=== PATIENT | male | born 1950 | race Caucasian/White ===

== ENCOUNTER → 2017-09-01 11:36 | Outpatient (CLI) | payer BC, MEDICARE, SELFPAY ==
[2017-09-01 13:58] LABS: Absolute Lymphocyte Count 1.59 X10^3/ul (0.83-4.51); Absolute Neutrophil Count 4.6 X10^3/uL (2.0-7.7); Basophil# 0.03 X10^3/uL; Basophil% 0.4 % (0-1); Eosinophil# 0.19 X10^3/uL; Eosinophils% 2.8 % (0-5); Hematocrit 50.3 % (40-54); Hemoglobin 16.5 g/dl (13.0-16.5); Lymphocyte # 1.59 X10^3/ul (4.0); Lymphocyte % 23.2 % (19-41); Mean Corp Hgb Conc 32.8 g/gl (32-36); Mean Corpuscular Hgb 32.2 pg (27.0-32.0); Mean Corpuscular Volume 98.2 fL (80-94); Mean Platelet Vol. 10.8 fl (6.2-12.0); Monocyte# 0.44 X10^3/uL; Monocyte% 6.4 % (0-10); Neutrophil # 4.58 X10^3/uL (2.7-7.7); Neutrophil % 66.9 % (47-70); Platelet Count 179 K/mm3 (150-450); RBC Distribution Width CV 14.1 % (11.6-14.6); RBC Distribution Width SD 50.6 fl (35.1-43.9); Red Blood Count 5.12 M/mm3 (4.6-6.2); White Blood Count 6.9 K/mm3 (4.4-11.0)
[2017-09-01 14:03] LABS: POSITIVE COUNT NO; POSITIVE DIFFERENTIAL NO; POSITIVE MORPHOLOGY NO
[2017-09-01 14:18] LABS: Anion Gap 10 (5-15); BUN 18 mg/dL (7-18); BUN/Creat Ratio 12.2 RATIO (10-20); Calcium,Total 8.7 mg/dL (8.5-10.1); Chloride 105 mmol/L (98-107); Creatinine, Serum 1.47 mg/dL (0.70-1.30); EST Glomerular Filtration Rate 51 mL/min (>60); Est Glom Filt Rate - Afr Amer 61 mL/min (>60); Glucose 155 mg/dL (74-106); Potassium 4.6 mmol/L (3.5-5.1); Sodium Level 139 mmol/L (136-145); Thyroid Stim Hormone (TSH) 1.53 uIU/mL (0.358-3.74)
== END ==
PROVIDERS: Family Provider Family Medicine; PCP Family Medicine; Visit Provider Family Medicine
DX: R53.83 Other fatigue (principal)
CPT/HCPCS: 36415; 80048; 83880; 84443; 85025

== ENCOUNTER → 2017-10-16 09:01 | Outpatient (CLI) | payer BC, MEDICARE, SELFPAY ==
[2017-10-16 10:19] LABS: Microalbumin,Random Urine 11.4 mg/L (NO RANGE EST.); Microalbumin:Creatinine Ratio 10.8 mg/g CRE (<30 mg/g CRE)
[2017-10-16 10:20] LABS: AST(SGOT) 17 U/L (15-37); Alanine Aminotransfer ALT/SGPT 31 U/L (16-61); Albumin, Serum 3.7 g/dL (3.2-5.0); Alkaline Phosphatase 69 U/L (45-117); Anion Gap 7 (5-15); BUN 25 mg/dL (7-18); BUN/Creat Ratio 18.4 RATIO (10-20); Bilirubin, Direct 0.11 mg/dL (0.00-0.30); Calcium,Total 9.2 mg/dL (8.5-10.1); Chloride 107 mmol/L (98-107); Cholesterol 146 mg/dL (200); Creatinine, Serum 1.36 mg/dL (0.70-1.30); EST Glomerular Filtration Rate 56 mL/min (>60); Est Glom Filt Rate - Afr Amer 67 mL/min (>60); Globulin 3.7 g/dL (2.2-4.2); Glucose 164 mg/dL (74-106); High Density Lipoprotein 30 mg/dL; Potassium 4.9 mmol/L (3.5-5.1); Protein, Total 7.4 g/dL (6.4-8.2); Sodium Level 137 mmol/L (136-145); Triglycerides 106 mg/dL; Very Low Density Lipoprotein 21 mg/dL (5-40)
== END ==
PROVIDERS: Family Provider Family Medicine; PCP Family Medicine; Visit Provider Family Medicine
DX: E11.9 Type 2 diabetes mellitus without complications (principal)
CPT/HCPCS: 36415; 80048; 80061; 80076; 82043; 82570

== ENCOUNTER → 2017-10-22 12:40 | Outpatient (CLI) | payer BC, MEDICARE, SELFPAY ==
--- NOTE | 2017-11-01 15:09 | LEAS ---
Arterial Study - Arterial Study Arterial Study: This is a 67-year-old male with a history of hypertension, cerebrovascular accident, and coronary artery disease. Suspecting the presence of atherosclerotic peripheral arterial occlusive disease, the patient was brought to the noninvasive vascular laboratory at this time for the purpose of bilateral noninvasive lower extremity arterial assessment. Doppler signal assessment was used to evaluate the pulses at ankle level bilaterally. The right posterior tibial pulse was triphasic. The right dorsalis pedis pulse was biphasic. The left posterior tibial and dorsalis pedis pulses were biphasic. Segmental limb pressures were obtained at ankle level bilaterally. The right ankle pressure, as determined by posterior tibial pulse, was measured at 154 mmHg. The right ankle pressure, as determined by dorsalis pedis pulse, was measured at 140 mmHg. The left ankle pressure, as determined by posterior tibial pulse, was measured at 142 mmHg. The left ankle pressure, as determined by dorsalis pedis pulse, was measured at 133 mmHg. Resting ankle-brachial indices were calculated bilaterally. The resting right ankle-brachial index was calculated to be 1.21. The resting left ankle-brachial index was calculated to be 1.12. Impression: Based upon the findings of this resting noninvasive lower extremity arterial study, there is no evidence of significant atherosclerotic peripheral arterial occlusive disease in the lower extremities bilaterally. Triphasic and biphasic waveforms were noted at ankle level bilaterally. Resting ankle-brachial indices were bilaterally normal. In summary, this represents a normal resting noninvasive lower extremity arterial study bilaterally.
--- NOTE | 2017-11-01 15:13 | LEAS_ITS ---
Arterial Study - Arterial Study Arterial Study: This is a 67-year-old male with a history of hypertension, cerebrovascular accident, and coronary artery disease. Suspecting the presence of atherosclerotic peripheral arterial occlusive disease, the patient was brought to the noninvasive vascular laboratory at this time for the purpose of bilateral noninvasive lower extremity arterial assessment. Doppler signal assessment was used to evaluate the pulses at ankle level bilaterally. The right posterior tibial pulse was triphasic. The right dorsalis pedis pulse was biphasic. The left posterior tibial and dorsalis pedis pulses were biphasic. Segmental limb pressures were obtained at ankle level bilaterally. The right ankle pressure, as determined by posterior tibial pulse, was measured at 154 mmHg. The right ankle pressure, as determined by dorsalis pedis pulse, was measured at 140 mmHg. The left ankle pressure, as determined by posterior tibial pulse, was measured at 142 mmHg. The left ankle pressure, as determined by dorsalis pedis pulse, was measured at 133 mmHg. Resting ankle-brachial indices were calculated bilaterally. The resting right ankle-brachial index was calculated to be 1.21. The resting left ankle- brachial index was calculated to be 1.12. Impression: Based upon the findings of this resting noninvasive lower extremity arterial study, there is no evidence of significant atherosclerotic peripheral arterial occlusive disease in the lower extremities bilaterally. Triphasic and biphasic waveforms were noted at ankle level bilaterally. Resting ankle- brachial indices were bilaterally normal. In summary, this represents a normal resting noninvasive lower extremity arterial study bilaterally.
== END ==
PROVIDERS: Family Provider Family Medicine; PCP Family Medicine; Visit Provider Family Medicine
DX: M79.671 Pain in right foot (principal)
CPT/HCPCS: 93922

== ENCOUNTER → 2017-11-19 12:07 | Outpatient (CLI) | payer MEDICARE, BC, SELFPAY ==
--- NOTE | 2017-11-19 12:14 | RAD_ITS ---
STUDY: X-RAY - THORACIC SPINE REASON FOR EXAM: Male, 67 years old. Mid to lower back pain. No injury. TECHNIQUE: 3 view(s) of the thoracic spine were obtained. COMPARISON: None. FINDINGS: AICD device. Borderline cardiomegaly. Normal vertebral body height and alignment. Minimal spondylosis. No significant disc narrowing. Small anterior osteophytes. Normal alignment across the cervicothoracic junction. Normal thoracic kyphosis without significant scoliosis. Limited view of the cervical spine reveals evidence of multilevel cervical disc degenerative disease between C5 and T1. Limited evaluation. RAD/Thoracic Spine 2 Views IMPRESSION: Minimal thoracic spondylosis. Multilevel mid to low cervical spondylosis incompletely characterized. Electronically Signed: Mir Olivera, at 18:00 EDT Tel , Service support ,
== END ==
PROVIDERS: Family Provider Family Medicine; PCP Family Medicine; Visit Provider Family Medicine
DX: M54.6 Pain in thoracic spine (principal)
CPT/HCPCS: 72070

== ENCOUNTER → 2017-11-21 09:06 | Outpatient (CLI) | payer MEDICARE, BC, SELFPAY ==
[2017-11-21 10:08] LABS: Hematocrit 49.1 % (40-54); Hemoglobin 16.3 g/dl (13.0-16.5); Mean Corp Hgb Conc 33.2 g/gl (32-36); Mean Corpuscular Hgb 32.7 pg (27.0-32.0); Mean Corpuscular Volume 98.6 fL (80-94); Mean Platelet Vol. 10.3 fl (6.2-12.0); Platelet Count 186 K/mm3 (150-450); RBC Distribution Width CV 14.3 % (11.6-14.6); RBC Distribution Width SD 51.5 fl (35.1-43.9); Red Blood Count 4.98 M/mm3 (4.6-6.2); White Blood Count 9.7 K/mm3 (4.4-11.0)
[2017-11-21 10:10] LABS: Scan Indicated on CBC? Y/N NO
== END ==
PROVIDERS: Family Provider Family Medicine; PCP Family Medicine; Visit Provider Family Medicine
DX: M54.6 Pain in thoracic spine (principal)
CPT/HCPCS: 36415; 85027

== ENCOUNTER → 2017-12-24 11:01 | Outpatient (CLI) | payer BC, MEDICARE, SELFPAY ==
--- NOTE | 2017-12-24 11:05 | CDU_ITS ---
Reason For Study: SYNCOPE Rt. Velocities/BP Lt. Velocities/BP Prox CCA 98.5/19.3 cm/sec. Prox CCA 85.0/23.5 cm/sec. Mid CCA 100.0/22.9 cm/sec. Mid CCA 108.0/28.1 cm/sec. Dist CCA 86.2/21.1 cm/sec. Dist CCA 79.7/17.6 cm/sec. Prox ICA 72.7/24.0 cm/sec. Prox ICA 90.3/26.4 cm/sec. Mid ICA 70.4/22.3 cm/sec. Mid ICA 67.5/18.9 cm/sec. Dist ICA 65.1/18.9 cm/sec. Dist ICA 66.8/23.0 cm/sec. Rt. ICA/CCA = .73. Lt. ICA/CCA = .84. Prox ECA 83.3/17.0 cm/sec. Prox ECA 75.0/15.2 cm/sec. Rt. Vert. 40.5/13.0 cm/sec. Lt. Vert. 43.4/12.3 cm/sec. Right Extracranial There is intimal thickening but no significant atherosclerotic plaque noted in the right common carotid artery. There is heterogeneous, irregular atherosclerotic plaque noted in the right internal carotid artery. There is no significant atherosclerotic plaque noted in the right external carotid artery. Antegrade flow is noted in the right vertebral artery. Left Extracranial There is homogeneous, smooth atherosclerotic plaque noted in the left common carotid artery. There is heterogeneous, irregular atherosclerotic plaque noted in the left internal carotid artery. There is intimal thickening but no significant atherosclerotic plaque noted in the left external carotid artery. Antegrade flow is noted in the left vertebral artery. Procedure Carotid Duplex 15879. Exam performed in department. Interpretation Summary Mild (<50%) stenosis right extracranial internal carotid. Mild (<50%) stenosis left extracranial internal carotid. Flow within the vertebral arteries is antegrade bilaterally. Ordering Physician: Emory Mccarty Referring Physician: Emory Mccarty Performed By: Teresa Maki RVT
== END ==
PROVIDERS: Family Provider Family Medicine; PCP Family Medicine; Visit Provider Family Medicine
DX: R55 Syncope and collapse (principal)
CPT/HCPCS: 93880

== ENCOUNTER → 2018-01-20 08:05 | Outpatient (CLI) | payer MEDICARE, BC, SELFPAY ==
[2018-01-20 10:36] LABS: AST(SGOT) 26 U/L (15-37); Alanine Aminotransfer ALT/SGPT 35 U/L (16-61); Albumin, Serum 3.7 g/dL (3.2-5.0); Alkaline Phosphatase 64 U/L (45-117); Anion Gap 6 (5-15); BUN 22 mg/dL (7-18); BUN/Creat Ratio 16.2 RATIO (10-20); Bilirubin, Direct 0.11 mg/dL (0.00-0.30); Calcium,Total 8.9 mg/dL (8.5-10.1); Chloride 107 mmol/L (98-107); Cholesterol 126 mg/dL (200); Creatinine, Serum 1.36 mg/dL (0.70-1.30); EST Glomerular Filtration Rate 56 mL/min (>60); Est Glom Filt Rate - Afr Amer 67 mL/min (>60); Globulin 3.5 g/dL (2.2-4.2); Glucose 161 mg/dL (74-106); High Density Lipoprotein 32 mg/dL; Potassium 4.4 mmol/L (3.5-5.1); Protein, Total 7.2 g/dL (6.4-8.2); Sodium Level 138 mmol/L (136-145); Triglycerides 109 mg/dL; Very Low Density Lipoprotein 22 mg/dL (5-40)
[2018-01-20 10:47] LABS: Microalbumin:Creatinine Ratio 9.4 mg/g CRE (<30 mg/g CRE)
== END ==
PROVIDERS: Family Provider Family Medicine; PCP Family Medicine; Visit Provider Family Medicine
DX: E11.9 Type 2 diabetes mellitus without complications (principal); E29.1 Testicular hypofunction
CPT/HCPCS: 36415; 80048; 80061; 80076; 82043; 82570; 84403

== ENCOUNTER → 2018-05-14 17:06 | Outpatient (CLI) | payer MEDICARE, BC, SELFPAY ==
--- NOTE | 2018-05-14 17:42 | RAD_ITS ---
HISTORY: SMACKED HIS LEFT THUMB (1ST DIGIT) WITH A WRENCH A COUPLE OF WEEKS AGO. PAIN IN LEFT THUMB. COMPARISON: None FINDINGS: XR Fingers 3 views left thumb No fracture, dislocation, or bony abnormality. Joint spaces appear preserved. As visualized, and the soft tissues are negative. No radiopaque foreign body. RAD/Finger(s) Min 2 Views IMPRESSION: Negative exam. No fracture or other abnormality seen. at 0517 Reported and signed by: Sushant Massey MD Electronically Signed: Sushant Massey, at 5:15 EST Tel , Service support ,
== END ==
PROVIDERS: Family Provider Family Medicine; PCP Family Medicine; Referring Provider Family Medicine; Visit Provider Family Medicine
DX: S69.92XA Unspecified injury of left wrist, hand and finger(s), initial encounter (principal)
CPT/HCPCS: 73140

== ENCOUNTER → 2018-06-17 16:47 | Outpatient (CLI) | payer MEDICARE, BC, SELFPAY ==
[2018-06-17 16:03] VITALS: BMI 39.2
--- NOTE | 2018-06-17 16:55 | RAD_ITS ---
STUDY: X-RAY CHEST REASON FOR EXAM: Male, 67 years old. Shortness of breath TECHNIQUE: Frontal and lateral views of the chest were obtained. COMPARISON: February 14, 2017 FINDINGS: Lines and tubes: None. Lungs: Underaerated with increased AP diameter on the lateral view. Minimal increased markings in both lung bases. Pleura: No demonstrated abnormality. Mediastinum/guy: Unremarkable. Cardiovascular: Normal size cardiac silhouette allowing for low volume inspiration. A pacing device is again seen in the left chest. Central vascularity unremarkable. Thoracic aorta unremarkable. Soft tissues: Unremarkable. Bones: Degenerative changes in spine. Upper abdomen: No demonstrated abnormality. RAD/Chest PA and Lateral IMPRESSION: No acute cardiopulmonary abnormalities. Stable COPD. Minimal bibasilar atelectasis. Electronically Signed: Mansi Kowalski MD at 23:55 EST Tel Direct: [phone], Service support ,
[2018-06-17 18:04] LABS: BNP,B-Type NATRIURETIC PEPTIDE 10.4 pg/mL (0-100)
== END ==
PROVIDERS: Family Provider Family Medicine; PCP Family Medicine; Referring Provider Nurse Practitioner Family; Visit Provider Nurse Practitioner Family
DX: R06.02 Shortness of breath (principal); R06.09 Other forms of dyspnea; I42.9 Cardiomyopathy, unspecified; Z95.810 Presence of automatic (implantable) cardiac defibrillator
CPT/HCPCS: 36415; 71046; 83880

== ENCOUNTER → 2018-07-07 12:42 | Outpatient (CLI) | payer MEDICARE, BC, SELFPAY | PROVIDERS: Family Provider Family Medicine; PCP Family Medicine; Referring Provider Nurse Practitioner Family; Visit Provider Nurse Practitioner Family | DX: I51.9 Heart disease, unspecified (principal) | CPT/HCPCS: 93306 ==

== ENCOUNTER → 2018-08-24 16:00 | Outpatient (CLI) | payer MEDICARE, BC, SELFPAY ==
[2018-07-23 10:19] VITALS: BMI 39.0
[2018-08-24 17:57] LABS: Absolute Lymphocyte Count 1.91 X10^3/ul (0.83-4.51); Absolute Neutrophil Count 6.2 X10^3/uL (2.0-7.7); Basophil# 0.03 X10^3/uL; Basophil% 0.3 % (0-1); Eosinophils% 2.2 % (0-5); Hematocrit 48.5 % (40-54); Hemoglobin 16.1 g/dl (13.0-16.5); Lymphocyte # 1.91 X10^3/ul (4.0); Lymphocyte % 21.4 % (19-41); Mean Corp Hgb Conc 33.2 g/gl (32-36); Mean Corpuscular Hgb 33.1 pg (27.0-32.0); Mean Corpuscular Volume 99.6 fL (80-94); Mean Platelet Vol. 10.9 fl (6.2-12.0); Monocyte# 0.58 X10^3/uL; Monocyte% 6.5 % (0-10); Neutrophil # 6.15 X10^3/uL (2.7-7.7); Neutrophil % 68.9 % (47-70); Platelet Count 169 K/mm3 (150-450); RBC Distribution Width CV 14.3 % (11.6-14.6); RBC Distribution Width SD 51.4 fl (35.1-43.9); Red Blood Count 4.87 M/mm3 (4.6-6.2); White Blood Count 8.9 K/mm3 (4.4-11.0)
[2018-08-24 18:12] LABS: POSITIVE COUNT NO; POSITIVE DIFFERENTIAL NO; POSITIVE MORPHOLOGY NO
[2018-08-24 18:25] LABS: BUN 25 mg/dL (7-18); Creatinine, Serum 1.51 mg/dL (0.70-1.30); Glucose 167 mg/dL (74-106)
[2018-08-24 18:26] LABS: ALB/GLOB Ratio 1.2 RATIO (0.9-2.4); AST(SGOT) 27 U/L (15-37); Alanine Aminotransfer ALT/SGPT 40 U/L (16-61); Alkaline Phosphatase 67 U/L (45-117); Anion Gap 12 (5-15); BUN/Creat Ratio 16.6 RATIO (10-20); Calcium,Total 8.5 mg/dL (8.5-10.1); Chloride 104 mmol/L (98-107); EST Glomerular Filtration Rate 49 mL/min (>60); Est Glom Filt Rate - Afr Amer 59 mL/min (>60); Globulin 3.3 g/dL (2.2-4.2); Potassium 4.4 mmol/L (3.5-5.1); Protein, Total 7.3 g/dL (6.4-8.2); Sodium Level 140 mmol/L (136-145)
== END ==
PROVIDERS: Family Provider Family Medicine; PCP Family Medicine; Visit Provider Family Medicine
DX: R55 Syncope and collapse (principal)
CPT/HCPCS: 36415; 80053; 84403; 84443; 85025

== ENCOUNTER → 2018-11-12 | Outpatient (CLI) | payer MEDICARE, BC, SELFPAY ==
[2018-07-23 10:19] VITALS: BMI 39.0
[2018-11-12 12:05] LABS: Absolute Lymphocyte Count 1.09 X10^3/ul (0.83-4.51); Absolute Neutrophil Count 4.5 X10^3/uL (2.0-7.7); Basophil# 0.03 X10^3/uL; Basophil% 0.5 % (0-1); Eosinophils% 1.7 % (0-5); Hematocrit 51.3 % (40-54); Hemoglobin 17.3 g/dl (13.0-16.5); Lymphocyte # 1.09 X10^3/ul (4.0); Lymphocyte % 18.1 % (19-41); Mean Corp Hgb Conc 33.7 g/gl (32-36); Mean Corpuscular Hgb 31.9 pg (27.0-32.0); Mean Corpuscular Volume 94.5 fL (80-94); Mean Platelet Vol. 11.1 fl (6.2-12.0); Monocyte# 0.33 X10^3/uL; Monocyte% 5.5 % (0-10); Neutrophil # 4.46 X10^3/uL (2.7-7.7); POSITIVE COUNT NO; POSITIVE DIFFERENTIAL NO; POSITIVE MORPHOLOGY NO; Platelet Count 164 K/mm3 (150-450); RBC Distribution Width CV 13.1 % (11.6-14.6); RBC Distribution Width SD 45.1 fl (35.1-43.9); Red Blood Count 5.43 M/mm3 (4.6-6.2)
[2018-11-12 12:47] LABS: Hemoglobin A1c 11.9 % (4.2-6.3)
[2018-11-12 13:01] LABS: Anion Gap 9 (5-15); BUN 20 mg/dL (7-18); BUN/Creat Ratio 13.1 RATIO (10-20); Calcium,Total 8.9 mg/dL (8.5-10.1); Chloride 99 mmol/L (98-107); Creatinine, Serum 1.53 mg/dL (0.70-1.30); EST Glomerular Filtration Rate 48 mL/min (>60); Est Glom Filt Rate - Afr Amer 58 mL/min (>60); Glucose 447 mg/dL (74-106); PSA,Total - Annual Screen 1.18 ng/mL (0.00-4.00); Potassium 4.9 mmol/L (3.5-5.1); Sodium Level 135 mmol/L (136-145); Thyroid Stim Hormone (TSH) 1.19 uIU/mL (0.358-3.74)
== END | disposition home or self-care (01) ==
LOC: MFPLAB 09:44
PROVIDERS: Family Provider Family Medicine; PCP Family Medicine; Referring Provider Family Medicine; Visit Provider Family Medicine
DX: E11.9 Type 2 diabetes mellitus without complications (principal); E29.1 Testicular hypofunction; R63.4 Abnormal weight loss; Z12.5 Encounter for screening for malignant neoplasm of prostate
CPT/HCPCS: 36415; 80048; 83036; 84153; 84403; 84443; 85025; G0103

== ENCOUNTER 2018-12-24 08:57 | Day surgery (SDC) | payer MEDICARE, BC, SELFPAY ==
[2018-07-23 10:19] VITALS: BMI 39.0
--- NOTE | 2018-12-11 03:45 | HP_ITS ---
HPI HPI History of Present Illness Surgical H&P: Yes Details: RUMA BAÑUELOS, is a 68 M who presents to the office today for a cardiovascular follow-up and pre-BiV ICD generator change. He is a history of nonischemic cardiomyopathy, left bundle branch block, mild coronary artery disease, paroxysmal atrial fibrillation, and a Bi-VICD. At the present time he states he is doing well. He has remained active. He states he has been out and about splitting wood with a sledgehammer in a mall. He has denied any ongoing symptoms of angina pectoris and no evidence of CHF or pulmonary edema. There has been no near syncope or syncope. His device is not discharged. His device was interrogated approximately 1 month ago. It appeared he had reached FLORINA. He had an ECG today. He was noted to have an underlying electronic ventricular paced rhythm compatible with a biventricular device. Intake Vital Signs 12/11/18 Height 5 ft 6 in 12/11/18 Weight: 220 lb 12/11/18 Body Mass Index (BMI) 35.5 12/11/18 Blood Pressure 124/60 H 12/11/18 Blood Pressure Location Lt brachial 12/11/18 Blood Pressure Position Sitting 12/11/18 Respiratory Rate 18 12/11/18 Pulse Rate 80 12/11/18 Pulse Source Auscultation 12/11/18 Body Mass Index (BMI) 39.0 Intake Visit Reasons: Update H & P for gen change/CIARA @ 330 Mini Shifter Required: No Accompanied by: Allergies morphine Adverse Reaction (Verified 12/11/18 15:06) Nausea/Vom/Diarrhea Medications Aspirin 325 mg PO QHS 09/26/16 [History Confirmed 12/11/18] Carvedilol [Coreg (Beta Jana)] 25 mg PO BID 09/26/16 [History Confirmed 12/11/18] Furosemide [Lasix] 20 mg PO DAILY 09/26/16 [History Confirmed 12/11/18] Omeprazole [Prilosec] 20 mg PO DAILY PRN 09/26/16 [History Confirmed 12/11/18] Ramipril [Altace] 10 mg PO BID 09/26/16 [History Confirmed 12/11/18] Tamsulosin HCl [Flomax] 0.4 mg PO DAILY 09/26/16 [History Confirmed 12/11/18] Testosterone Cypionate [Depo-Testosterone] 200 mg IM QWEEK 09/26/16 [History Confirmed 12/11/18] metFORMIN HCl [Glucophage] 500 mg PO DAILY 09/26/16 [History Confirmed 12/11/18] Sertraline HCl [Zoloft] 25 mg PO DAILY 02/14/17 [History Confirmed 12/11/18] tramadol 50 mg tablet 50 mg PO QDAY PRN tab 08/20/17 [History Confirmed 12/11/18] apixaban 2.5 mg tablet 2.5 mg PO BID 06/17/18 [History Confirmed 12/11/18] [facility] Medical History Dilated cardiomyopathy (Chronic) Atherosclerosis of [place] coronary artery of [place] heart without angina pectoris (Chronic) Diastolic dysfunction (Chronic) Left bundle branch block (LBBB) (Chronic) Family history of coronary artery disease (Chronic) Shortness of breath (Chronic) Edema (Chronic) PAF (paroxysmal atrial fibrillation) (Chronic) Neck pain (Acute) Bilateral shoulder pain (Acute) GERD (gastroesophageal reflux disease) (Chronic) Depression (Chronic) Obesity (BMI 35.0-39.9 without comorbidity) (Chronic) Diabetes mellitus type 2 in obese (Chronic) Chronic renal failure, stage 3 (moderate) (Chronic) Secondary polycythemia (Chronic) Cardiomyopathy (Inactive) Surgical History History of implantable cardioverter-defibrillator (ICD) placement (Chronic) Family History Father Myocardial infarction, Onset Age: 60 CAD (coronary artery disease) Mother Cancer Brother Cancer Throat cancer Brother TIA (transient ischemic attack) Myocardial infarction Brother History of PTCA Heart disease Social History Smoking Status: Former smoker how long ago did patient quit smokin alcohol intake: never substance use type: does not use caffeine: Yes Type: coffee Number of servings: 1 what type of physical activity do you participate in: none seatbelt use: sometimes do you feel safe at home: Yes ROS Const Const: Negative for fatigue, weakness, frequent falls, excessive sweating, weight gain or weight loss Eyes Eyes: Negative for transient loss of vision, blurry vision or change in vision ENT ENT: Negative for dizziness or balance problems Cardio Chest Pain: No Palpitations: No Edema: None Muscle aches with walking: None Resp Respiratory: Negative for SOB with activity or SOB at rest GI GI: Negative vomiting or vomiting blood/hematemesis : Negative for hematuria Musc Musc: Positive for muscle aches/ myalgia (occasional cramping to bilat LE @ night); negative for muscle weakness, joint pain or balance problems Skin Skin: Negative non-healing lesions or rash Neuro Neuro: Positive for lightheadedness (occasional when up and about); negative for dizziness, orthostatic symptoms, frequent falls, weakness or blurry vision Justino Hematologic/Lymphatic: Negative for easy bleeding Endo Endo: Negative for fatigue or excessive sweating Psych Psych: Negative for anxiety or depression Allergy Allergy/Immunology: Negative for hives, Negative for rash Cardiology Exam Const Appearance: cooperative, healthy appearing, comfortable, no acute distress, well developed and well groomed Nutritional Appearance: well nourished and obese Orientation: alert, awake and oriented x3 Head Head: normal to inspection, normocephalic and atraumatic Ears: hearing grossly normal bilaterally Nose: external nose normal Face and Sinus: face symmetric Mouth: moist mucous membranes Eyes Eyelids: eyelids normal Conjunctivae: conjunctivae normal Pupils: PERRL EOM: EOM intact bilaterally Neck Neck: normal visual inspection, full ROM and no JVD Carotids: normal carotid upstroke; negative bruit Neck Mass: Negative Neck mass Chest Chest inspection: normal inspection of the chest, symmetric chest movement, Pacemaker/ICD Yes left pectoral incision and normal respiratory effort Auscultation: Bilateral: Clear to Auscultation, Crackles (Bases) Cardio Palpation: normal PMI Rate: regular rate Rhythm: regular rhythm Heart sounds: S1 normal and S2 normal; negative rub, gallop or murmur GI GI: normal to inspection, soft, bowel sounds present and obese Neuro General: alert, awake, oriented x3 and moves all extremities Skin Skin: no rashes or lesions noted Extremities Pulses: Normal: Right Posterior Tibial Pulse, Left Posterior Tibial Pulse, Right Radial Pulse, Left Radial Pulse Lower Extremity Edema: None: Bilateral Psych Psychological: normal affect Assessment & Plan 1. Atherosclerosis of [place] coronary artery of [place] heart without angina pectoris I25.10 Mild Plan At the present time he appears to be doing well overall. He will continue his current medical management. He will undergo reevaluation for the possibility of any CAD as deemed appropriate. Orders Orders: 12 Lead EKG performed by [facility] Today 2. Dilated cardiomyopathy I42.0 Plan He does not appear to have any symptoms of acute CHF or pulmonary edema. Overall his LV systolic function has improved with medical therapy and his biventricular ICD. He will continue his medical therapy and his device therapy. 3. Paroxysmal atrial fibrillation I48.0 Plan He will continue medical management. This has included his beta-jana therapy and his anticoagulant therapy. His anticoagulant therapy may need to be temporarily interrupted for his upcoming generator change. Orders Orders: 12 Lead EKG performed by BMS Today 4. Left bundle branch block (LBBB) I44.7 Plan He does have a left bundle branch block history. That would be compatible with his underlying cardiomyopathy. He does have a biventricular ICD in place. 5. History of implantable cardioverter-defibrillator (ICD) placement Z95.810 Implant: 08/19/2011 Plan Again his biventricular ICD has reached FLORINA. He will be scheduled for upcoming generator change. Orders Orders: Pacemaker Generator Change Today Plan Detail Additional Comments A SDM interaction occurred at this visit using an SDM tool prior to initial implant of ICD. Thank you for allowing me to participate in the care of your patient. Please don't hesitate to call if any issues arise. This note was generated using a voice recognition system and there may be incorrect words, spelling or punctuation that were not noted when reviewing the office note prior to saving. Follow Up 1 Month (as previously scheduled) Coding Level of Care Code Off vis,est,level 4 Diagnoses Atherosclerosis of [place] coronary artery of [place] heart without angina pectoris I25.10 Dilated cardiomyopathy I42.0 Paroxysmal atrial fibrillation I48.0 Left bundle branch block (LBBB) I44.7 History of implantable cardioverter-defibrillator (ICD) placement Z95.810 Coding Level of Care Code Off vis,est,level 4 Diagnoses Atherosclerosis of [place] coronary artery of [place] heart without angina pectoris I25.10 Dilated cardiomyopathy I42.0 Paroxysmal atrial fibrillation I48.0 Left bundle branch block (LBBB) I44.7 History of implantable cardioverter-defibrillator (ICD) placement Z95.810 Supplemental Info Supplemental Information Carotid duplex ultrasound from showed Mild (<50%) stenosis right extracranial internal carotid. Mild (<50%) stenosis left extracranial internal carotid. Flow within the vertebral arteries is antegrade bilaterally. Echocardiogram from June 2018 showed normal LV size, estimate ejection fraction 47%, septal motion consistent with IVCD, stage I diastolic dysfunction, and compared to previous study, left ventricular systolic function is the same. Heart catheterization from 03/04/2008 showed left main no obstructive disease, LCx with less than 10% stenosis, ramus intermedius with 30% ostial stenosis, LAD with proximal 30% stenosis, mid 20% stenosis, and remainder LAD with minimal disease, RCA with proximal 10% stenosis, mid less than 10% stenosis, distal RCA as angiographically normal, and posterior descending branches with 20% mid stenosis. Labs LDL Cholesterol 72 mg/dL (0-130) 01/20/18 HDL Cholesterol 32 mg/dL (40-) L 01/20/18 Triglycerides 109 mg/dL (-199) 01/20/18 VLDL Cholesterol 22 mg/dL (5-40) 01/20/18 Diagnostics Electrocardiogram 12/11/18 Echocardiogram 07/05/14 Pacemaker Check 11/25/18 Chest X-Ray 06/17/18 12/11/18 [id number] <Electronically signed by Emory napier MD> Date _ Emory Eagle MD I have re-examined the patient. There are no clinical changes since date of exam.
[2018-12-11 15:06] VITALS: BMI 35.5
--- NOTE | 2018-12-11 16:09 | RAD_ITS ---
HISTORY: Patient states he is having his Pacemaker battery replaced. EXAM: XR Chest 2 Views: COMPARISON: June 17, 2019 FINDINGS: # of images incl. paperwork: 2 Triple lead, left chest wall, left subclavian approach cardiac pacer/defibrillator is unchanged in position. Lungs are without focal airspace disease. There are some chronic interstitial disease and basilar scarring Heart is not enlarged. Mild thoracic spondylosis is unchanged. Atherosclerotic calcific plaque within the aortic arch was better demonstrated on the previous study. Pulmonary vascularity is distinct. No effusions. RAD/Chest PA and Lateral IMPRESSION: No acute cardiopulmonary disease.. at 4121 Reported and signed by: Karson Ellis MD Electronically Signed: Karson Ellis MD at 5:50 EDT Tel , Service support ,
[2018-12-11 16:22] LABS: Bacteria 0 SEEN /hpf (None Seen); Mucous, Urine 0 SEEN /hpf (<or=2+); Red Blood Cells-Urine 0 SEEN /hpf (0-5)
[2018-12-11 17:08] LABS: Hematocrit 48.6 % (40-54); Hemoglobin 16.5 g/dl (13.0-16.5); Mean Corpuscular Hgb 31.9 pg (27.0-32.0); Mean Corpuscular Volume 93.8 fL (80-94); Mean Platelet Vol. 10.5 fl (6.2-12.0); Platelet Count 191 K/mm3 (150-450); RBC Distribution Width CV 13.3 % (11.6-14.6); RBC Distribution Width SD 45.2 fl (35.1-43.9); Red Blood Count 5.18 M/mm3 (4.6-6.2)
[2018-12-11 17:09] LABS: Scan Indicated on CBC? Y/N NO
[2018-12-11 17:11] LABS: International Normalized Ratio 1.2; Prothrombin Time (Protime)PT. 14.5 SECONDS (11.7-14.9)
[2018-12-11 17:16] LABS: Color, Urine Yellow (Yellow); Glucose, Dipstick 1000 mg/dl (Normal); Ketone-Dipstick Negative (Negative); Leukocyte Esterase-Dipstick Negative /ul (Negative); Nitrite-Dipstick Negative (Negative); Occult Blood-Urine Negative /ul (Negative); Protein-Dipstick Negative (Negative); Urine Bilirubin Dipstick Negative (Negative); Urine Clarity Clear (Clear); Urine Urobilinogen Normal (Normal)
[2018-12-11 17:27] LABS: Squamous Epithelial Cells - UA 0-5 SEEN /hpf (0-5); White Blood Cells 0-5 SEEN /hpf (0-5)
[2018-12-11 17:33] LABS: Anion Gap 9 (5-15); BUN 20 mg/dL (7-18); BUN/Creat Ratio 13.8 RATIO (10-20); Calcium,Total 9.4 mg/dL (8.5-10.1); Chloride 104 mmol/L (98-107); Creatinine, Serum 1.45 mg/dL (0.70-1.30); EST Glomerular Filtration Rate 51 mL/min (>60); Est Glom Filt Rate - Afr Amer 62 mL/min (>60); Glucose 291 mg/dL (74-106); Potassium 3.9 mmol/L (3.5-5.1); Sodium Level 139 mmol/L (136-145)
[2018-12-23 11:08] VITALS: BMI 35.5
--- NOTE | 2018-12-24 10:03 | HP.PCM_ITS ---
Problem List (1) Dilated cardiomyopathy Status: Chronic (2) History of implantable cardioverter-defibrillator (ICD) placement Status: Chronic Comment: Implant: 08/19/2011 (3) PAF (paroxysmal atrial fibrillation) Status: Chronic History and Physical Date of Admission: 12/24/18 HPI HPI History of Present Illness Surgical H&P: Yes Details: RUMA BAÑUELOS, is a 68 M who presents to the office today for a cardiovascular follow-up and pre-BiV ICD generator change. He is a history of nonischemic cardiomyopathy, left bundle branch block, mild coronary artery disease, paroxysmal atrial fibrillation, and a Bi-VICD. At the present time he states he is doing well. He has remained active. He states he has been out and about splitting wood with a sledgehammer in a mall. He has denied any ongoing symptoms of angina pectoris and no evidence of CHF or pulmonary edema. There has been no near syncope or syncope. His device is not discharged. His device was interrogated approximately 1 month ago. It appeared he had reached FLORINA. He had an ECG today. He was noted to have an underlying electronic ventricular paced rhythm compatible with a biventricular device. Intake Vital signs: see chart Intake Visit Reasons: Update H & P for gen change/CIARA @ [address] [employer] Required: No Accompanied by: Allergies morphine Adverse Reaction (Verified 12/11/18 15:06) Nausea/Vom/Diarrhea Medications Aspirin 325 mg PO QHS 09/26/16 [History Confirmed 12/11/18] Carvedilol [Coreg (Beta Jana)] 25 mg PO BID 09/26/16 [History Confirmed 12/11/18] Furosemide [Lasix] 20 mg PO DAILY 09/26/16 [History Confirmed 12/11/18] Omeprazole [Prilosec] 20 mg PO DAILY PRN 09/26/16 [History Confirmed 12/11/18] Ramipril [Altace] 10 mg PO BID 09/26/16 [History Confirmed 12/11/18] Tamsulosin HCl [Flomax] 0.4 mg PO DAILY 09/26/16 [History Confirmed 12/11/18] Testosterone Cypionate [Depo-Testosterone] 200 mg IM QWEEK 09/26/16 [History Confirmed 12/11/18] metFORMIN HCl [Glucophage] 500 mg PO DAILY 09/26/16 [History Confirmed 12/11/18] Sertraline HCl [Zoloft] 25 mg PO DAILY 02/14/17 [History Confirmed 12/11/18] tramadol 50 mg tablet 50 mg PO QDAY PRN tab 08/20/17 [History Confirmed 12/11/18] apixaban 2.5 mg tablet 2.5 mg PO BID 06/17/18 [History Confirmed 12/11/18] [facility] Medical History Dilated cardiomyopathy (Chronic) Atherosclerosis of [place] coronary artery of [place] heart without angina pectoris (Chronic) Diastolic dysfunction (Chronic) Left bundle branch block (LBBB) (Chronic) Family history of coronary artery disease (Chronic) Shortness of breath (Chronic) Edema (Chronic) PAF (paroxysmal atrial fibrillation) (Chronic) Neck pain (Acute) Bilateral shoulder pain (Acute) GERD (gastroesophageal reflux disease) (Chronic) Depression (Chronic) Obesity (BMI 35.0-39.9 without comorbidity) (Chronic) Diabetes mellitus type 2 in obese (Chronic) Chronic renal failure, stage 3 (moderate) (Chronic) Secondary polycythemia (Chronic) Cardiomyopathy (Inactive) Surgical History History of implantable cardioverter-defibrillator (ICD) placement (Chronic) Family History Father Myocardial infarction, Onset Age: 60 CAD (coronary artery disease) Mother Cancer Brother Cancer Throat cancer Brother TIA (transient ischemic attack) Myocardial infarction Brother History of PTCA Heart disease Social History Smoking Status: Former smoker how long ago did patient quit smokin alcohol intake: never substance use type: does not use caffeine: Yes Type: coffee Number of servings: 1 what type of physical activity do you participate in: none seatbelt use: sometimes do you feel safe at home: Yes ROS Const Const: Negative for fatigue, weakness, frequent falls, excessive sweating, weight gain or weight loss Eyes Eyes: Negative for transient loss of vision, blurry vision or change in vision ENT ENT: Negative for dizziness or balance problems Cardio Chest Pain: No Palpitations: No Edema: None Muscle aches with walking: None Resp Respiratory: Negative for SOB with activity or SOB at rest GI GI: Negative vomiting or vomiting blood/hematemesis : Negative for hematuria Musc Musc: Positive for muscle aches/ myalgia (occasional cramping to bilat LE @ night); negative for muscle weakness, joint pain or balance problems Skin Skin: Negative non-healing lesions or rash Neuro Neuro: Positive for lightheadedness (occasional when up and about); negative for dizziness, orthostatic symptoms, frequent falls, weakness or blurry vision Justino Hematologic/Lymphatic: Negative for easy bleeding Endo Endo: Negative for fatigue or excessive sweating Psych Psych: Negative for anxiety or depression Allergy Allergy/Immunology: Negative for hives, Negative for rash Cardiology Exam Const Appearance: cooperative, healthy appearing, comfortable, no acute distress, well developed and well groomed Nutritional Appearance: well nourished and obese Orientation: alert, awake and oriented x3 Head Head: normal to inspection, normocephalic and atraumatic Ears: hearing grossly normal bilaterally Nose: external nose normal Face and Sinus: face symmetric Mouth: moist mucous membranes Eyes Eyelids: eyelids normal Conjunctivae: conjunctivae normal Pupils: PERRL EOM: EOM intact bilaterally Neck Neck: normal visual inspection, full ROM and no JVD Carotids: normal carotid upstroke; negative bruit Neck Mass: Negative Neck mass Chest Chest inspection: normal inspection of the chest, symmetric chest movement, Pacemaker/ICD Yes left pectoral incision and normal respiratory effort Auscultation: Bilateral: Clear to Auscultation, Crackles (Bases) Cardio Palpation: normal PMI Rate: regular rate Rhythm: regular rhythm Heart sounds: S1 normal and S2 normal; negative rub, gallop or murmur GI GI: normal to inspection, soft, bowel sounds present and obese Neuro General: alert, awake, oriented x3 and moves all extremities Skin Skin: no rashes or lesions noted Extremities Pulses: Normal: Right Posterior Tibial Pulse, Left Posterior Tibial Pulse, Right Radial Pulse, Left Radial Pulse Lower Extremity Edema: None: Bilateral Psych Psychological: normal affect Assessment & Plan 1. Atherosclerosis of [place] coronary artery of [place] heart without angina pectoris I25.10 Mild Plan At the present time he appears to be doing well overall. He will continue his current medical management. He will undergo reevaluation for the possibility of any CAD as deemed appropriate. Orders Orders: 12 Lead EKG performed by BMS Today 2. Dilated cardiomyopathy I42.0 Plan He does not appear to have any symptoms of acute CHF or pulmonary edema. Overall his LV systolic function has improved with medical therapy and his biventricular ICD. He will continue his medical therapy and his device therapy. 3. Paroxysmal atrial fibrillation I48.0 Plan He will continue medical management. This has included his beta-jana therapy and his anticoagulant therapy. His anticoagulant therapy may need to be temporarily interrupted for his upcoming generator change. Orders Orders: 12 Lead EKG performed by BMS Today 4. Left bundle branch block (LBBB) I44.7 Plan He does have a left bundle branch block history. That would be compatible with his underlying cardiomyopathy. He does have a biventricular ICD in place. 5. History of implantable cardioverter-defibrillator (ICD) placement Z95.810 Implant: 08/19/2011 Plan Again his biventricular ICD has reached FLORINA. He will be scheduled for upcoming generator change. Orders Orders: Pacemaker Generator Change Today Plan Detail Additional Comments A SDM interaction occurred at this visit using an SDM tool prior to initial implant of ICD. Thank you for allowing me to participate in the care of your patient. Please don't hesitate to call if any issues arise. This note was generated using a voice recognition system and there may be incorrect words, spelling or punctuation that were not noted when reviewing the office note prior to saving. Follow Up 1 Month (as previously scheduled) Coding Level of Care Code Off vis,est,level 4 Diagnoses Atherosclerosis of [place] coronary artery of [place] heart without angina pectoris I25.10 Dilated cardiomyopathy I42.0 Paroxysmal atrial fibrillation I48.0 Left bundle branch block (LBBB) I44.7 History of implantable cardioverter-defibrillator (ICD) placement Z95.810 Supplemental Info Supplemental Information Carotid duplex ultrasound from showed Mild (<50%) stenosis right extracranial internal carotid. Mild (<50%) stenosis left extracranial internal carotid. Flow within the vertebral arteries is antegrade bilaterally. Echocardiogram from June 2018 showed normal LV size, estimate ejection fraction 47%, septal motion consistent with IVCD, stage I diastolic dysfunction, and compared to previous study, left ventricular systolic function is the same. Heart catheterization from 03/04/2008 showed left main no obstructive disease, LCx with less than 10% stenosis, ramus intermedius with 30% ostial stenosis, LAD with proximal 30% stenosis, mid 20% stenosis, and remainder LAD with minimal disease, RCA with proximal 10% stenosis, mid less than 10% stenosis, distal RCA as angiographically normal, and posterior descending branches with 20% mid stenosis. Labs LDL Cholesterol 72 mg/dL (0-130) 01/20/18 HDL Cholesterol 32 mg/dL (40-) L 01/20/18 Triglycerides 109 mg/dL (-199) 01/20/18 VLDL Cholesterol 22 mg/dL (5-40) 01/20/18 Addendum: H&P updated, no changes since evaluated on 12/11/2018 in office.
--- NOTE | 2018-12-24 11:04 | PCM.OPRPT ---
Report of Operation Date of Procedure: 12/24/18 Description of Surgical Findings:: Preoperative diagnosis is device at end of life for normal battery depletion. Postoperative diagnosis same as above. After informed consent and IV antibiotics the patient was brought to the [place] catheterization laboratory and the skin over the device was prepped and draped in the usual sterile manner. Intermittent boluses of Versed, and fentanyl were used for sedation and analgesia as well as 1% subcutaneous lidocaine. Prior to procedure fluoroscopy inspection of the Riata lead was performed. There was no extrusion and all electrical parameters were normal. Proceeded with device replacement for normal battery depletion An incision was made over the pre-existing device. Using blunt and Bovie dissection the pocket was opened and the device was removed. Careful attention was paid not to injure the pre-existing leads. The leads were removed from the device header and they were interrogated. There is normal lead function. Hemostasis was obtained. The pocket was flushed with antibiotic solution. The sponge and needle count were correct. The new device was brought to the field. The leads were placed in the appropriate position in the header and secured by the set screw. The leads and the device were then placed in the pocket. The pocket was closed with a deep layer of running 2-0 Vicryl, a superficial layer of running 4-0 Vicryl, skin with Steri-Strips which were covered with a rolled 4 x 4 and Tegaderm. Patient left the room with the device programmed to proper parameters and there were no complications. The device is a Lane BiV pacer/ICD chamber generator. All lead parameters were tested and found to be functionally normal. Lead and device serial and model numbers are available in the chart documents provided by the device company client relations representative procedure summary.
== END 2018-12-24 12:50 | disposition home or self-care (01) ==
LOC: CLSP 08:58
PROVIDERS: Internal Medicine Cardiovascular Disease; Family Provider Family Medicine; PCP Family Medicine; Referring Provider Internal Medicine Cardiovascular Disease; Visit Provider Internal Medicine Cardiovascular Disease
DX: Z45.010 Encounter for checking and testing of cardiac pacemaker pulse generator [battery] (principal); I25.10 Atherosclerotic heart disease of native coronary artery without angina pectoris; I48.0 Paroxysmal atrial fibrillation; I42.0 Dilated cardiomyopathy; I44.7 Left bundle-branch block, unspecified; K21.9 Gastro-esophageal reflux disease without esophagitis; F32.9 Major depressive disorder, single episode, unspecified; E66.9 Obesity, unspecified; Z68.35 Body mass index [BMI] 35.0-35.9, adult; E11.69 Type 2 diabetes mellitus with other specified complication; E11.22 Type 2 diabetes mellitus with diabetic chronic kidney disease; N18.3 Chronic kidney disease, stage 3 (moderate); Z95.810 Presence of automatic (implantable) cardiac defibrillator; Z79.82 Long term (current) use of aspirin; Z79.84 Long term (current) use of oral hypoglycemic drugs; Z79.01 Long term (current) use of anticoagulants; Z79.899 Other long term (current) drug therapy; Z87.891 Personal history of nicotine dependence
CPT/HCPCS: 33264; 36415; 71046; 80048; 81001; 85027; 85610; 93641; 99152; 99153; J7040; J7050

== ENCOUNTER 2018-12-28 22:16 | Emergency (ER) | payer MEDICARE, BC, SELFPAY ==
[2018-12-23 11:08] VITALS: BMI 35.5
[2018-12-28 22:17] VITALS: BP 146/74; PULSE 76; RESP 16; TEMP 36.7; O2SAT 99; BMI 35.1
[2018-12-28 23:27] VITALS: BP 138/47; PULSE 78; RESP 18; O2SAT 97
--- NOTE | 2018-12-28 23:52 | ED.VISSUMM ---
- ER Visit Summary Date of Service: 12/28/18 Chief Complaint: Postoperative bleeding History of Present Illness: The patient is a 68 M who presents the emergency department postoperative day 4. He had pacemaker/ICD placed on the here at the hospital. He changed his dressing and Steri-Strips fell off. Tonight he was sitting watching TV and began to have bleeding at the site. When he got here nursing had him apply pressure and the bleeding has since stopped. He is on Eliquis. He notes no change in the swelling of the ecchymosis at the site. Physical Examination: Afebrile vital signs stable Left upper chest surgical incision clean dry and intact. There is no active bleeding that I can see. There is surrounding ecchymosis and mild swelling. No evidence of infection. Emergency Department Course and Treatment: Steri-Strips will be applied. On top of that Surgicel and a dry dressing. Follow-up will be on Friday as scheduled with his doctor. Impression: 1. Postoperative bleeding This note was generated with [employer] dictation software. It may contain incorrect words, spelling, and punctuation that were not noted in review of the chart prior to signing ED Disposition - Plan for ED Patient: Disposition: Home or Assisted Living Instructions: POST OP WOUND CHECK, Bleeding Additional Instructions: Follow-up with your doctor on Friday You may change the dressing on Friday. Please leave Steri-Strips in place if able.
[2018-12-29 00:11] VITALS: BP 166/72; PULSE 80; RESP 18; O2SAT 95
== END 2018-12-29 00:24 | disposition home or self-care (01) ==
LOC: ED 12-29 00:04
PROVIDERS: Emergency Provider Emergency Medicine; Family Provider Family Medicine; PCP Family Medicine
DX: L76.22 Postprocedural hemorrhage of skin and subcutaneous tissue following other procedure (principal); K21.9 Gastro-esophageal reflux disease without esophagitis; E11.22 Type 2 diabetes mellitus with diabetic chronic kidney disease; I12.9 Hypertensive chronic kidney disease with stage 1 through stage 4 chronic kidney disease, or unspecified chronic kidney disease; N18.9 Chronic kidney disease, unspecified; I42.0 Dilated cardiomyopathy; Z95.810 Presence of automatic (implantable) cardiac defibrillator; Z79.01 Long term (current) use of anticoagulants; Z79.82 Long term (current) use of aspirin; Z79.84 Long term (current) use of oral hypoglycemic drugs; Z79.899 Other long term (current) drug therapy; Z87.891 Personal history of nicotine dependence
CPT/HCPCS: 99283; A4216

== ENCOUNTER → 2019-01-21 | Outpatient (CLI) | payer MEDICARE, BC, SELFPAY ==
[2018-12-28 22:17] VITALS: BMI 35.1
[2019-01-21 11:55] LABS: Hematocrit 48.2 % (40-54); Hemoglobin 16.4 g/dL (13.0-16.5); Mean Corpuscular Hgb 32.1 pg (27.0-32.0); Mean Corpuscular Volume 94.3 fL (80-94); Mean Platelet Vol. 10.7 fl (6.2-12.0); Platelet Count 172 K/mm3 (150-450); RBC Distribution Width CV 13.5 % (11.6-14.6); Red Blood Count 5.11 M/mm3 (4.6-6.2); White Blood Count 6.7 K/mm3 (4.4-11.0)
[2019-01-21 13:15] LABS: Anion Gap 10 (5-15); BUN 16 mg/dL (7-18); BUN/Creat Ratio 9.2 RATIO (10-20); Calcium,Total 8.5 mg/dL (8.5-10.1); Chloride 101 mmol/L (98-107); Creatinine, Serum 1.73 mg/dL (0.70-1.30); EST Glomerular Filtration Rate 42 mL/min (>60); Est Glom Filt Rate - Afr Amer 51 mL/min (>60); Glucose 520 mg/dL (74-106); Potassium 4.3 mmol/L (3.5-5.1); Sodium Level 135 mmol/L (136-145); Thyroid Stim Hormone (TSH) 0.94 uIU/mL (0.358-3.74)
== END | disposition home or self-care (01) ==
LOC: LAB 11:06
PROVIDERS: Family Provider Family Medicine; PCP Family Medicine; Referring Provider Physician Assistant Medical; Visit Provider Physician Assistant Medical
DX: I42.0 Dilated cardiomyopathy (principal); I25.10 Atherosclerotic heart disease of native coronary artery without angina pectoris; I44.7 Left bundle-branch block, unspecified; I48.0 Paroxysmal atrial fibrillation; R53.83 Other fatigue
CPT/HCPCS: 36415; 80048; 84443; 85027

== ENCOUNTER → 2019-01-27 | Outpatient (CLI) | payer MEDICARE, BC, SELFPAY ==
[2018-12-28 22:17] VITALS: BMI 35.1
== END | disposition home or self-care (01) ==
LOC: LABSPEC 13:16
PROVIDERS: Family Provider Family Medicine; PCP Family Medicine; Referring Provider Physician Assistant Medical; Visit Provider Physician Assistant Medical
DX: Z95.810 Presence of automatic (implantable) cardiac defibrillator (principal)
CPT/HCPCS: 87070; 87077; 87186; 87205

== ENCOUNTER → 2019-07-07 09:47 | Outpatient (CLI) | payer MEDICARE, BC, SELFPAY ==
[2019-07-05 10:09] VITALS: BMI 37.5
[2019-07-07 12:11] LABS: Absolute Lymphocyte Count 1.22 X10^3/uL (0.83-4.51); Absolute Neutrophil Count 3.9 X10^3/uL (2.0-7.7); Basophil# 0.06 X10^3/uL; Eosinophil# 0.17 X10^3/uL; Eosinophils% 2.8 % (0-5); Hematocrit 50.4 % (40-54); Hemoglobin 15.8 g/dL (13.0-16.5); Lymphocyte # 1.22 X10^3/ul (4.0); Lymphocyte % 20.2 % (19-41); Mean Corp Hgb Conc 31.3 g/dL (32-36); Mean Corpuscular Volume 95.6 fL (80-94); Mean Platelet Vol. 10.5 fl (6.2-12.0); Monocyte# 0.63 X10^3/uL; Monocyte% 10.4 % (0-10); NRBC Flagged by Analyzer 0 % (0-5); Neutrophil # 3.94 X10^3/uL (2.7-7.7); Neutrophil % 65.1 % (47-70); Platelet Count 150 K/mm3 (150-450); RBC Distribution Width SD 49.2 fl (35.1-43.9); Red Blood Count 5.27 M/mm3 (4.6-6.2); White Blood Count 6.1 K/mm3 (4.4-11.0)
[2019-07-07 12:44] LABS: Anion Gap 3 (5-15); BUN 23 mg/dL (7-18); BUN/Creat Ratio 15.6 RATIO (10-20); Calcium,Total 9.2 mg/dL (8.5-10.1); Chloride 108 mmol/L (98-107); Cholesterol 127 mg/dL (200); Creatinine, Serum 1.47 mg/dL (0.70-1.30); EST Glomerular Filtration Rate 51 mL/min (>60); Est Glom Filt Rate - Afr Amer 61 mL/min (>60); Glucose 176 mg/dL (74-106); High Density Lipoprotein 31 mg/dL; PSA,Total - Annual Screen 1.31 ng/mL (0.00-4.00); Sodium Level 139 mmol/L (136-145); Triglycerides 83 mg/dL; Very Low Density Lipoprotein 17 mg/dL (5-40)
== END ==
PROVIDERS: Family Provider Family Medicine; PCP Family Medicine; Referring Provider Family Medicine; Visit Provider Family Medicine
DX: E11.9 Type 2 diabetes mellitus without complications (principal); E29.1 Testicular hypofunction; Z12.5 Encounter for screening for malignant neoplasm of prostate
CPT/HCPCS: 36415; 80048; 80061; 84153; 84403; 85025; G0103

== ENCOUNTER → 2019-07-20 08:07 | Outpatient (CLI) | payer MEDICARE, BC, SELFPAY ==
[2019-07-05 10:09] VITALS: BMI 37.5
--- NOTE | 2019-07-20 08:08 | ECHOL_ITS ---
Reason For Study: CARDIOMYOPATHY Procedure This was a limited 2D transthoracic echocardiogram. The study was technically difficult. Exam performed in department. Left Ventricle Mildly dilated left ventricle. Mild global left ventricular systolic dysfunction. The estimated ejection fraction is 45 %. Paced septal motion. Unable to assess diastolic dysfunction. Right Ventricle Normal RV size. ICD or pacer leads identified within the right ventricle. Normal systolic function. Atria The left atrium is mildly enlarged. Normal right atrium. ICD or pacer leads identified within the right atrium. Mitral Valve There is mild mitral annular calcification. Normal mitral valve. Tricuspid Valve Normal tricuspid valve. Mild tricuspid valve insufficiency. Aortic Valve Trisinus/trileaflet aortic valve. Mild focal aortic valve calcification. Pulmonic Valve The pulmonic valve is not well visualized. Great Vessels Normal sized aortic root. Pericardium/Pleural No pericardial effusion. MMode/2D Measurements & Calculations LVIDd: 5.7 cm IVSd: 1.1 cm Ao root diam: 3.3 cm LVIDs: 4.4 cm LVPWd: 1.1 cm RVDd: 3.6 cm FS: 22.8 % LAV(MOD-bp): 84.9 ml LA A4 area: 24.4 cm2 LA dimension(2D): 4.5 cm LAV(MOD-bp) Indexed: 40.0 ml/m2 LAV(MOD-sp2): 77.8 ml LAV(MOD-sp4): 79.6 ml RA A4 area: 15.0 cm2 Interpretation Summary The study was technically difficult. Mildly dilated left ventricle. Mild global left ventricular systolic dysfunction. The estimated ejection fraction is 45 %. Paced septal motion. The left atrium is mildly enlarged. There is mild mitral annular calcification. Mild tricuspid valve insufficiency. Mild focal aortic valve calcification. Unable to assess diastolic dysfunction. ICD or pacer leads identified within the right atrium ICD or pacer leads identified within the right ventricle. Ordering Physician: Emory Eagle Referring Physician: Emory Mccarty Performed By: Ceci Fish RDCS, RVT
== END ==
PROVIDERS: Family Provider Family Medicine; PCP Family Medicine; Referring Provider Internal Medicine Cardiovascular Disease; Visit Provider Internal Medicine Cardiovascular Disease
DX: I42.0 Dilated cardiomyopathy (principal)
CPT/HCPCS: 93308

== ENCOUNTER → 2019-12-09 15:17 | Outpatient (CLI) | payer MEDICARE, BC, SELFPAY ==
[2019-12-09 14:23] VITALS: BMI 38.7
[2019-12-09 17:42] LABS: Absolute Lymphocyte Count 1.91 X10^3/uL (0.83-4.51); Absolute Neutrophil Count 4.5 X10^3/uL (2.0-7.7); Basophil# 0.08 X10^3/uL; Basophil% 1.1 % (0-1); Eosinophil# 0.16 X10^3/uL; Eosinophils% 2.1 % (0-5); Hematocrit 49.4 % (40-54); Hemoglobin 15.8 g/dL (13.0-16.5); Lymphocyte # 1.91 X10^3/ul (4.0); Lymphocyte % 25.4 % (19-41); Mean Corpuscular Hgb 31.2 pg (27.0-32.0); Mean Corpuscular Volume 97.6 fL (80-94); Mean Platelet Vol. 10.6 fl (6.2-12.0); Monocyte# 0.79 X10^3/uL; Monocyte% 10.5 % (0-10); NRBC Flagged by Analyzer 0 % (0-5); Neutrophil # 4.53 X10^3/uL (2.7-7.7); Neutrophil % 60.4 % (47-70); Platelet Count 180 K/mm3 (150-450); RBC Distribution Width SD 53.6 fl (35.1-43.9); Red Blood Count 5.06 M/mm3 (4.6-6.2); White Blood Count 7.5 K/mm3 (4.4-11.0)
[2019-12-09 18:03] LABS: Anion Gap 7 (5-15); BUN 20 mg/dL (7-18); BUN/Creat Ratio 13.6 RATIO (10-20); Calcium,Total 9.1 mg/dL (8.5-10.1); Chloride 107 mmol/L (98-107); Creatinine, Serum 1.47 mg/dL (0.70-1.30); EST Glomerular Filtration Rate 50 mL/min (>60); Est Glom Filt Rate - Afr Amer 61 mL/min (>60); Glucose 83 mg/dL (74-106); Potassium 4.5 mmol/L (3.5-5.1); Sodium Level 139 mmol/L (136-145)
[2019-12-09 18:34] LABS: BNP,B-Type NATRIURETIC PEPTIDE 17.8 pg/mL (0-100)
== END ==
PROVIDERS: Nurse Practitioner Family; PCP Family Medicine; Referring Provider Family Medicine; Visit Provider Family Medicine
DX: I42.0 Dilated cardiomyopathy (principal); R06.00 Dyspnea, unspecified
CPT/HCPCS: 36415; 80048; 83880; 85025

== ENCOUNTER → 2019-12-27 09:23 | Outpatient (CLI) | payer MEDICARE, BC, SELFPAY ==
[2019-12-09 14:23] VITALS: BMI 38.7
--- NOTE | 2019-12-27 09:26 | RAD_ITS ---
STUDY: X-RAY - RIGHT ANKLE REASON FOR EXAM: Male, 69 years old. Stuck in railroad tie 2 days ago -- pain TECHNIQUE: 3 view(s) of the ankle. COMPARISON: None. FINDINGS: Normal visualized distal tibia and fibula. Normal medial and lateral malleoli. Normal tibiotalar articulation and ankle mortise. A spur is seen at the insertion of the Achilles tendon. The visualized subtalar, talonavicular, calcaneocuboid and tarsal articulations are normal. Mild soft tissue swelling. RAD/Ankle min 3 Views IMPRESSION: Calcaneal spur. Mild degree of soft tissue swelling. Electronically Signed: Kei Kim, at 10:14 EDT , Service support ,
== END ==
PROVIDERS: PCP Family Medicine; Referring Provider Family Medicine; Visit Provider Family Medicine
DX: S99.911A Unspecified injury of right ankle, initial encounter (principal)
CPT/HCPCS: 73610

== ENCOUNTER → 2020-03-01 12:02 | Outpatient (CLI) | payer MEDICARE, BC, SELFPAY ==
[2019-12-09 14:23] VITALS: BMI 38.7
[2020-03-01 16:07] LABS: Hemoglobin 16.4 g/dL (13.0-16.5); Mean Corp Hgb Conc 31.5 g/dL (32-36); Mean Corpuscular Volume 98.3 fL (80-94); Mean Platelet Vol. 10.7 fl (6.2-12.0); Platelet Count 172 K/mm3 (150-450); RBC Distribution Width CV 14.2 % (11.6-14.6); RBC Distribution Width SD 51.4 fl (35.1-43.9); Red Blood Count 5.29 M/mm3 (4.6-6.2); White Blood Count 6.3 K/mm3 (4.4-11.0)
[2020-03-01 16:22] LABS: Anion Gap 4 (5-15); BUN 20 mg/dL (7-18); BUN/Creat Ratio 13.1 RATIO (10-20); Calcium,Total 8.6 mg/dL (8.5-10.1); Chloride 104 mmol/L (98-107); Creatinine, Serum 1.53 mg/dL (0.70-1.30); EST Glomerular Filtration Rate 48 mL/min (>60); Est Glom Filt Rate - Afr Amer 58 mL/min (>60); Glucose 127 mg/dL (74-106); Sodium Level 137 mmol/L (136-145)
== END ==
PROVIDERS: PCP Family Medicine; Referring Provider Family Medicine; Visit Provider Family Medicine
DX: R53.83 Other fatigue (principal)
CPT/HCPCS: 36415; 80048; 82533; 85027

== ENCOUNTER → 2020-03-09 14:01 | Outpatient (CLI) | payer MEDICARE, BC, SELFPAY ==
[2019-12-09 14:23] VITALS: BMI 38.7
--- NOTE | 2020-03-09 14:04 | RAD_ITS ---
STUDY: X-RAY - LUMBAR SPINE REASON FOR EXAM: Male, 69 years old. LBP, NO TRAUMA TECHNIQUE: 5 view(s) of the lumbar spine were obtained. COMPARISON: Prior lumbar spine imaging of 09/20/[address] exam of 10/20/2015 FINDINGS: Normal lumbar lordosis. There is no substantial scoliosis. There is a normal alignment of the vertebrae. Moderate degenerative disc narrowing and spondylitic endplate changes at L1 to and L2-3 as well as T12-L1. Mild disc narrowing with anterior spondylitic endplate changes at L3-4. Narrowing and spondylitic endplate changes at L4-5 and L5-S1. Posterior elements are normally aligned with generalized mild facet arthrosis at mid and lower lumbar levels. The soft tissue structures are unremarkable. RAD/L/S Spine Min 4 Views IMPRESSION: Normal alignment of the lumbar spine without fracture, osteolytic or blastic bone lesion. Moderate degenerative disc narrowing and spondylitic endplate changes at L1-L2, L2-L3 as well as T12-L1 that has increased in degree since prior examinations of 2015. Milder stable degenerative disc findings at L3-4, L4-5 and L5-S1. Mild degenerative facet joint changes bilaterally. Electronically Signed: Awilda Goode MD at 23:55 EDT , Service support ,
== END ==
PROVIDERS: PCP Family Medicine; Referring Provider Family Medicine; Visit Provider Family Medicine
DX: M54.9 Dorsalgia, unspecified (principal)
CPT/HCPCS: 72110

== ENCOUNTER → 2020-04-05 08:56 | Outpatient (CLI) | payer MEDICARE, BC, SELFPAY ==
[2020-03-22 08:20] VITALS: BMI 38.7
[2020-04-05 10:15] LABS: Cholesterol 122 mg/dL (200); High Density Lipoprotein 34 mg/dL; Triglycerides 151 mg/dL; Very Low Density Lipoprotein 30 mg/dL (5-40)
== END ==
PROVIDERS: PCP Family Medicine; Referring Provider Family Medicine; Visit Provider Family Medicine
DX: E11.9 Type 2 diabetes mellitus without complications (principal)
CPT/HCPCS: 36415; 80061

== ENCOUNTER → 2020-07-05 08:36 | Outpatient (CLI) | payer MEDICARE, BC, SELFPAY ==
[2020-03-22 08:20] VITALS: BMI 38.7
[2020-07-05 10:54] LABS: BUN 15 mg/dL (7-18); Creatinine, Serum 1.38 mg/dL (0.70-1.30); Glucose 220 mg/dL (74-106)
[2020-07-05 10:55] LABS: Anion Gap 5 (5-15); BUN/Creat Ratio 10.9 RATIO (10-20); Calcium,Total 8.7 mg/dL (8.5-10.1); Chloride 109 mmol/L (98-107); Cholesterol 132 mg/dL (200); EST Glomerular Filtration Rate 54 mL/min (>60); Est Glom Filt Rate - Afr Amer 66 mL/min (>60); High Density Lipoprotein 32 mg/dL; Potassium 4.2 mmol/L (3.5-5.1); Sodium Level 139 mmol/L (136-145); Triglycerides 134 mg/dL; Very Low Density Lipoprotein 27 mg/dL (5-40)
== END ==
PROVIDERS: PCP Family Medicine; Referring Provider Family Medicine; Visit Provider Family Medicine
DX: E11.9 Type 2 diabetes mellitus without complications (principal); E29.1 Testicular hypofunction
CPT/HCPCS: 36415; 80048; 80061; 84403

== ENCOUNTER → 2020-09-27 08:40 | Outpatient (CLI) | payer MEDICARE, BC, SELFPAY ==
[2020-08-28 13:27] VITALS: BMI 39.2
[2020-09-27 10:19] LABS: Absolute Lymphocyte Count 1.13 X10^3/uL (0.83-4.51); Absolute Neutrophil Count 3.9 X10^3/uL (2.0-7.7); Basophil# 0.06 X10^3/uL; Eosinophil# 0.16 X10^3/uL; Eosinophils% 2.8 % (0-5); Hematocrit 52.4 % (40-54); Hemoglobin 16.5 g/dL (13.0-16.5); Lymphocyte # 1.13 X10^3/ul (4.0); Lymphocyte % 19.5 % (19-41); Mean Corp Hgb Conc 31.5 g/dL (32-36); Mean Corpuscular Hgb 31.3 pg (27.0-32.0); Mean Corpuscular Volume 99.4 fL (80-94); Mean Platelet Vol. 10.5 fl (6.2-12.0); Monocyte# 0.51 X10^3/uL; Monocyte% 8.8 % (0-10); NRBC Flagged by Analyzer 0 % (0-5); Neutrophil % 67.2 % (47-70); Platelet Count 171 K/mm3 (150-450); RBC Distribution Width SD 51.8 fl (35.1-43.9); Red Blood Count 5.27 M/mm3 (4.6-6.2); White Blood Count 5.8 K/mm3 (4.4-11.0)
[2020-09-27 10:50] LABS: Anion Gap 7 (5-15); BUN 20 mg/dL (7-18); BUN/Creat Ratio 13.3 RATIO (10-20); Calcium,Total 8.5 mg/dL (8.5-10.1); Chloride 103 mmol/L (98-107); Cholesterol 142 mg/dL (200); EST Glomerular Filtration Rate 49 mL/min (>60); Est Glom Filt Rate - Afr Amer 60 mL/min (>60); Glucose 283 mg/dL (74-106); High Density Lipoprotein 34 mg/dL; Potassium 5.1 mmol/L (3.5-5.1); Sodium Level 136 mmol/L (136-145); Thyroid Stim Hormone (TSH) 1.23 uIU/mL (0.358-3.74); Triglycerides 147 mg/dL; Very Low Density Lipoprotein 29 mg/dL (5-40)
[2020-09-27 18:26] LABS: BNP,B-Type NATRIURETIC PEPTIDE 7.7 pg/mL (0-100)
== END ==
PROVIDERS: Nurse Practitioner Family; PCP Family Medicine; Referring Provider Family Medicine; Visit Provider Family Medicine
DX: R06.00 Dyspnea, unspecified (principal); I42.0 Dilated cardiomyopathy; E29.1 Testicular hypofunction; R06.02 Shortness of breath
CPT/HCPCS: 36415; 80048; 80061; 83880; 84403; 84443; 85025

== ENCOUNTER → 2020-10-10 06:57 | Outpatient (CLI) | payer MEDICARE, BC, SELFPAY ==
[2020-09-27 15:50] VITALS: BMI 39.0
--- NOTE | 2020-10-10 09:57 | STRESSREP ---
Stress Test Report Date: 10-10-2020 Procedure: Pharmacologic stress nuclear imaging study Indications: Shortness of breath; chest pain; cardiomyopathy; left bundle branch block; paroxysmal atrial fibrillation; permanent pacemaker Consent: Per the patient Procedure: The patient underwent pharmacologic (Regadenoson 0.4mg ) evaluation with a peak heart rate of 114 beats per minute (76%predicted maximal heart rate) and a peak blood pressure of 162/72 mmHg. The baseline ECG demonstrated electronic ventricular paced rhythm. The peak pharmacologic ECG demonstrated no obvious ECG changes. There were no cardiac dysrhythmias pretest, during pharmacologic infusion, or recovery. There was no complaint of chest discomfort during pharmacologic infusion or recovery. The examination was discontinued secondary to completion of protocol. Impression: 1. Pharmacologic (Regadenoson) evaluation 2. Peak pharmacologic ECG with continued electronic ventricular paced rhythm. 3. There were no cardiac dysrhythmias pretest, during pharmacologic infusion, or recovery. 4. Nuclear images pending Myocardial perfusion imaging study: Technique: The patient was injected with 15.0 millicuries of technetium 99m Cardiolite and subsequently rest SPECT Cardiolite nuclear imaging was obtained in the horizontal long, vertical long, and short axis views. The patient underwent pharmacologic (Regadenoson) evaluation with a peak heart rate of 114 beats per minute (76% percent predicted maximal heart rate) and a peak blood pressure of 162/72 mmHg. The patient was injected with 44.8 millicuries of technetium 99m Cardiolite and subsequently stress SPECT Cardiolite nuclear imaging was obtained in the horizontal long, vertical long, and short axis views. A gated Cardiolite study at peak stress was obtained. Interpretation: Rest and stress SPECT Cardiolite nuclear imaging status post realignment, normalization, and attenuation correction demonstrate the appearance of a small area of diminished tracer uptake near the apical segments without significant change between rest and stress. There is diminished end systolic thickening and brightening. The gated Cardiolite study demonstrates diminished myocardial thickening and inward wall motion. The reported LVEF is 30%. Impression: 1. Rest and stress SPECT Cardiolite nuclear imaging demonstrate myocardial perfusion changes appearing compatible with physiologic apical thinning although an area of previous myocardial injury/infarction involving small area of the apical segments cannot necessarily be excluded with no myocardial perfusion changes considered diagnostic for associated stress-induced myocardial ischemia. 2. The gated Cardiolite study reports an LVEF of 30%. This note was generated with Dragon dictation software. It may contain incorrect words, spelling, and punctuation that were not noted in checking the note before signing.
== END ==
PROVIDERS: PCP Family Medicine; Referring Provider Internal Medicine Cardiovascular Disease; Visit Provider Internal Medicine Cardiovascular Disease
DX: R07.9 Chest pain, unspecified (principal); R06.00 Dyspnea, unspecified; I42.0 Dilated cardiomyopathy; I48.0 Paroxysmal atrial fibrillation; I44.7 Left bundle-branch block, unspecified; Z95.810 Presence of automatic (implantable) cardiac defibrillator
CPT/HCPCS: 78452; 93017; A9500; A4216; J2785

== ENCOUNTER → 2020-11-02 06:47 | Outpatient (CLI) | payer MEDICARE, BC, SELFPAY ==
[2020-10-26 08:47] VITALS: BMI 39.0
--- NOTE | 2020-11-03 13:53 | PFTCOMP ---
INTRODUCTION: The patient is a 70-year-old male that presents for pulmonary function studies secondary to a diagnosis of shortness of breath. Respiratory therapy reports good patient effort. Bronchodilators were used during testing. INTERPRETATION: Forced expiration spirometry demonstrates no evidence of a large airways obstructive ventilatory defect. There was no significant response to aerosolized bronchodilators. Spirograms are of good quality and plateau normally. Body plus tomography was performed and reveals lung volumes to be within normal limits. Diffusing capacity by single breath CO is also within normal limits. IMPRESSION: Grossly normal pulmonary function studies.
== END ==
PROVIDERS: PCP Family Medicine; Referring Provider Nurse Practitioner Family; Visit Provider Nurse Practitioner Family
DX: R93.89 Abnormal findings on diagnostic imaging of other specified body structures (principal); R06.02 Shortness of breath
CPT/HCPCS: 94060; 94726; 94729

== ENCOUNTER → 2020-11-09 12:12 | Outpatient (CLI) | payer MEDICARE, BC, SELFPAY ==
[2020-11-08 12:31] VITALS: BMI 39.0
[2020-11-09 15:13] LABS: Hematocrit 51.9 % (40-54); Hemoglobin 16.2 g/dL (13.0-16.5); Mean Corp Hgb Conc 31.2 g/dL (32-36); Mean Corpuscular Hgb 30.2 pg (27.0-32.0); Mean Corpuscular Volume 96.6 fL (80-94); Mean Platelet Vol. 10.5 fl (6.2-12.0); Platelet Count 178 K/mm3 (150-450); RBC Distribution Width CV 13.5 % (11.6-14.6); RBC Distribution Width SD 48.4 fl (35.1-43.9); Red Blood Count 5.37 M/mm3 (4.6-6.2); White Blood Count 6.7 K/mm3 (4.4-11.0)
[2020-11-09 15:20] LABS: Anion Gap 7 (5-15); BUN 21 mg/dL (7-18); BUN/Creat Ratio 14.7 RATIO (10-20); Calcium,Total 8.6 mg/dL (8.5-10.1); Chloride 106 mmol/L (98-107); Creatinine, Serum 1.43 mg/dL (0.70-1.30); EST Glomerular Filtration Rate 52 mL/min (>60); Est Glom Filt Rate - Afr Amer 63 mL/min (>60); Glucose 210 mg/dL (74-106); Potassium 4.6 mmol/L (3.5-5.1); Sodium Level 137 mmol/L (136-145)
== END ==
PROVIDERS: Anesthesiology; PCP Family Medicine; Referring Provider Family Medicine; Visit Provider Physician Assistant
DX: Z01.818 Encounter for other preprocedural examination (principal)
CPT/HCPCS: 36415; 80048; 83036; 85027

== ENCOUNTER 2020-11-14 10:48 | Day surgery (SDC) | payer MEDICARE, BC, SELFPAY ==
[2020-11-08 12:31] VITALS: BMI 39.0
[2020-11-14 11:23] VITALS: BP 152/81; PULSE 87; RESP 18; TEMP 36.9; O2SAT 100; BMI 38.4
[2020-11-14] MEDS: Lactated Ringers 1,000 ML 100 ML IV (11:51)
--- NOTE | 2020-11-14 12:04 | HP.PCM_ITS ---
History and Physical Date of Admission: 11/14/20 Date of Service: 11/08/20 MR#:[id number]:[id number] Name: RUMA BAÑUELOS #:[id number] :1950 Age/Sex: 70/M Provider: JUWAN Burrows [facility] ADDENDUM by Dr. Sulema Da Silva MD on 11/08/20 at 1510 Intake Chief Complaint: umbilical hernia Allergies morphine Adverse Reaction (Verified 11/08/20 12:41) Nausea/Vom/Diarrhea Medications furosemide 20 mg PO DAILY 09/26/16 [History Confirmed 11/08/20] tamsulosin 0.4 mg PO DAILY 09/26/16 [History Confirmed 11/08/20] testosterone cypionate 200 mg IM QWEEK 09/26/16 [History Confirmed 11/08/20] sertraline 25 mg PO DAILY 02/14/17 [History Confirmed 11/08/20] tramadol 50 mg tablet 50 mg PO QDAY PRN tab 08/20/17 [History Confirmed 11/08/20] aspirin 81 mg tablet,delayed release 81 mg PO DAILY 02/11/19 [History Confirmed 11/08/20] carvedilol 12.5 mg tablet 12.5 mg PO BID 02/11/19 [History Confirmed 11/08/20] apixaban 2.5 mg tablet 2.5 mg PO BID 07/05/19 [History Confirmed 11/08/20] nitroglycerin 0.4 mg sublingual tablet 0.4 mg SUBLINGUAL Q5-15M PRN #25 tab 04/03/20 [Rx Confirmed 11/08/20] ramipril 10 mg capsule See Rx Instructions .ROUTE .COMPLEX #90 cap 09/06/20 [Rx Confirmed 11/08/20] glimepiride 4 mg tablet 4 mg PO DAILY tab 10/26/20 [History Confirmed 11/08/20] metformin 1,000 mg tablet 1,000 mg PO DAILY tab 10/26/20 [History Confirmed 11/08/20] Assessment and Plan Assessment and Plan (1) Umbilical hernia without mention of obstruction or gangrene: Status: Acute Plan: Patient seen and examined agree with Elisha Burrows's note. Patient's umbilical hernia is easily reducible. Eliquis we will check with cardiology to make sure we are able to stop. Plan to do an umbilical hernia repair with mesh. Reviewed the procedure with the patient including the risks, including but not limited to infection, bleeding, injury to the small bowel, and recurrence. All questions were answered. Sulema Da Silva M.D. Pager: [phone] [facility] [address] [place] [address], [facility], [address] [place] [address] Office: [phone] Plan Details Other Orders: Orders: Basic Metabolic Profile (BMP) Today Z.818 CBC-Complete Blood Cnt No Diff Today Z01.818 11/08/20 1510<Electronically signed by Sulema Da Silva MD> Date Sulema Da Silva MD cc: Dr. Emory Mccarty MD ~*Signed Intake Vital Signs 11/08/20 12:31 Height 5 ft 6 in Weight: 242 lb BMI 39.0 BP 149/78 H Blood Pressure Location Lt brachial Position Sitting Respiration 20 H Pulse 73 Pulse Source NIBP Temp 98.2 F Temp Source Temporal Pulse Oximetry (%) 96 Oxygen Delivery Method room air Intake Visit Reasons: Reducible Hernia Chief Complaint: umbilical hernia Straightener And Aligner Required: No Is patient in pain?: Yes (umbilicus ) Pain scale (1-10): 7 Allergies morphine Adverse Reaction (Verified 11/08/20 12:41) Nausea/Vom/Diarrhea Medications furosemide 20 mg PO DAILY 09/26/16 [History Confirmed 11/08/20] tamsulosin 0.4 mg PO DAILY 09/26/16 [History Confirmed 11/08/20] testosterone cypionate 200 mg IM QWEEK 09/26/16 [History Confirmed 11/08/20] sertraline 25 mg PO DAILY 02/14/17 [History Confirmed 11/08/20] tramadol 50 mg tablet 50 mg PO QDAY PRN tab 08/20/17 [History Confirmed 11/08/20] aspirin 81 mg tablet,delayed release 81 mg PO DAILY 02/11/19 [History Confirmed 11/08/20] carvedilol 12.5 mg tablet 12.5 mg PO BID 02/11/19 [History Confirmed 11/08/20] apixaban 2.5 mg tablet 2.5 mg PO BID 07/05/19 [History Confirmed 11/08/20] nitroglycerin 0.4 mg sublingual tablet 0.4 mg SUBLINGUAL Q5-15M PRN #25 tab 04/03/20 [Rx Confirmed 11/08/20] ramipril 10 mg capsule See Rx Instructions .ROUTE .COMPLEX #90 cap 09/06/20 [Rx Confirmed 11/08/20] glimepiride 4 mg tablet 4 mg PO DAILY tab 10/26/20 [History Confirmed 11/08/20] metformin 1,000 mg tablet 1,000 mg PO DAILY tab 10/26/20 [History Confirmed 11/08/20] [facility] Medical History (Updated 11/08/20 @ 13:57 by Elisha COLON, PAGabrielaC) Atherosclerosis of [place] coronary artery of [place] heart without angina pectoris Cardiomyopathy Chronic renal failure, stage 3 (moderate) Depression Diabetes mellitus type 2 in obese Diastolic dysfunction Dilated cardiomyopathy Edema Family history of coronary artery disease GERD (gastroesophageal reflux disease) Left bundle branch block (LBBB) Obesity (BMI 35.0-39.9 without comorbidity) PAF (paroxysmal atrial fibrillation) Secondary polycythemia Shortness of breath Umbilical hernia without mention of obstruction or gangrene Uses LifeVest defibrillator Surgical History History of implantable cardioverter-defibrillator (ICD) placement (12/24/18) Family History Father Myocardial infarction, Onset Age: 60 CAD (coronary artery disease) Mother Cancer Brother Cancer Throat cancer Brother TIA (transient ischemic attack) Myocardial infarction Brother History of PTCA Heart disease Social History Smoking Status: Former smoker how long ago did patient quit smokin alcohol intake: never substance use type: does not use caffeine: Yes Type: coffee Number of servings: 1 what type of physical activity do you participate in: none seatbelt use: sometimes do you feel safe at home: Yes HPI: RUMA BAÑUELOS, is a 70 M who presents to the office today for possible incarcerated umbilical hernia. Patient states he has had an umbilical hernia for many years. He states a few days ago he was working on a car and bent over and felt a pop. He noted instant pain/discomfort. He noted a bulge at the umbilicus which he was able to reduce. Since this time he has noted the hernia will easily come out with coughing or bending over. He notes each time he is able to reduce the hernia. He is now wearing a hernia belt which has helped to keep the hernia in place. He denies nausea, vomiting, and change in bowel habits. He notes a cardiac history with pacer/defib in the right chest. He also has A fib, which he is on Eliquis for. He denies previous myocardial infarction, stroke or blood clots. He denies complications or side effects from anesthesia. He was evaluated by his PCP today who referred patient for an umbilical hernia. ROS General General: No weight change, appetite, fatigue, colon cancer, breast cancer or weakness HEENT HEENT: No difficulty swallowing, eye injury, eye surgery, swollen glands or hoarseness Endo Endocrine: No thyroid disease, diabetes mellitus, thyroid cancer, Hair loss, heat intolerance or cold intolerance Cardio Cardiovascular: Yes pacemaker, heart disease, atrial fibrillation and high blood pressure; No murmur, heart attack, heart stent, palpitations, shortness of breat with exertion or chest pain Psych Psychiatric: No depression, anxiety or hearing voices Resp Respiratory: No shortness of breath, Yes sleep apnea, No cough, Yes COPD, No asthma, No emphysema and No wheezing Gastro Gastrointestinal: Yes abdominal pain, No nausea or vomiting, No diarrhea, No constipation, No blood in stool, No acid reflux, No hemorrhoids, No ulcers, No gallbladder problem and No black,tarry stools Justino Hematologic: Yes blood thinners, No blood disorders, No bleeding, No anemia and No blood clots Neuro Neurologic: No weakness Exam Const General: cooperative, healthy appearing, comfortable and no acute distress Nutritional Appearance: obese HENMT Head: normal to inspection Eyes General: appearance normal, both eyes and all related structures Neck Neck: normal visual inspection Neck mass: No Resp Effort & Inspection: normal respiratory effort Auscultation: clear to auscultation bilaterally Cardio Rate: regular rate Rhythm: regular rhythm GI Inspection: normal to inspection Palpation: soft and hernia (tenderness over the hernia site with palpation) umbilical Other: Umbilical hernia is easily reducible. Hernia belt noted to keep hernia reduced. Skin General: no rashes or lesions noted Neuro General: no focal motor deficits and CN's II-XI intact bilaterally Extrem General: normal to inspection Psych Appearance: grossly normal Affect: normal affect Assessment and Plan Assessment and Plan (1) Umbilical hernia without mention of obstruction or gangrene: Status: Acute Plan - Elisha COLON PA-C: Dr. Da Silva has also evaluated this patient. Dr. Da Silva will plan to perform an umbilical hernia repair with mesh placement. Procedure details, risks and benefits have been explained. Patient and his have had the opportunity to ask and have questions answered. Our office will send a message to Dr. Eagle's office to see if Eliquis can be held for 3 days prior to the procedure and to see their recommendation on how long to hold the ASA. Patient may obtain pre-op blood work today. He is aware he will need a COVID test as he has not received the vaccine. Plan Details Other Orders: Orders: Basic Metabolic Profile (BMP) Today Z01.818 CBC-Complete Blood Cnt No Diff Today Z01.818 Coding Level of Care Code 34506 Diagnoses Umbilical hernia without mention of obstruction or gangrene K42.9 11/08/20 1404<Electronically signed by Elisha COLON PA-C>Date Elisha COLON PA-C
[2020-11-14] MEDS: Cefazolin 2 GM in 0.9% Normal Saline 100 ML IV (12:28)
--- NOTE | 2020-11-14 12:30 | HERN_PTH ---
PATIENT: RUMA BAÑUELOS LOC: [facility] U#:[id number] AGE/SX: 70/M ROOM: RE11/14/[address]: Dr. Sulema Da Silva MD : 1950 BED: DIS: 11/14/2020 SPEC #: [id number] RECD: 11/14/20 14:39 STATUS: AARON REVivienne #: [id number] JOANIE: 11/14/20 12:[address]: Sulema Da Silva DEPT: SURGICAL PATHOLOGY RECD BY: Rima Austin ENTERED: 11/15/20 09:43 SP TYPE: Hernia OTHR DR: Dr. Emory Mccarty MD Tissues: HERNIA Procedures: Surgery Specimen Level II HEADER OPERATION: Umbilical hernia repair with mesh PRE-OP DIAGNOSIS: Umbilical hernia TISSUE SUBMITTED: Umbilical hernia sac MICROSCOPIC DIAGNOSIS Umbilical hernia sac: A piece of fibroadipose and fibroconnective tissue, consistent with hernia sac with chronic inflammation and reactive changes. SJ:christian 11/16/2020 MICROSCOPIC DESCRIPTION Slides are reviewed. GROSS DESCRIPTION Received in fixative is one container labeled with the patient's name and designated hernia sac umbilical. The specimen consists of an irregular piece of soft tissue measuring 4 x 2.5 x 0.5 cm. No mass lesion is identified. Registered Nurse Renal sections are submitted in one cassette. / SJ:christian 11/15/20 TC:5 CPT: 04876
[2020-11-14 12:40] LABS: Bedside Glucose 223 mg/dL (70-110)
[2020-11-14] MEDS: Bupivacaine Mpf 0.5% 30 ML VIAL (13:26)
--- NOTE | 2020-11-14 13:26 | OP.PCM_ITS ---
Report of Operation Date of Procedure: 11/14/20 Pre-Operative Diagnosis: Umbilical hernia Post-Operative Diagnosis: Same Surgery/Procedure Performed:: Umbilical hernia repair with mesh Surgeon: Sulema Da Silva ceramic worker: None (ANGEL[facility]) Type of Anesthesia: General/Supplemental Anesthesiologist: Dillon Coronel Special Medications: Ancef 2 g IV x1 Specimen's removed: Hernia sac Estimated Blood Loss (mL): 10 CC Fluids Replaced: Per anesthesia Description of Procedure: Patient was brought into the room placed supine on the operating table. Correct patient, procedure, site, positioning, special, was verified prior to procedure. General anesthesia was induced. The abdomen was prepped draped in usual sterile fashion. A curvilinear incision was made below the umbilicus with a 15 blade scalpel. This was deepened with electrocautery. A hemostat was used to go around the stalk of the umbilicus and Metzenbaum scissors was used to carefully divide the hernia sac from the skin of the umbilicus. The fascia around the hernia defect was cleared and the hernia defect measured 1.5 cm x 1.[address] hernia patch medium 6.4 cm (ref [id number] lot [id number]) was used. The details of the mesh was secured with 1-0 Nurolon mattress sutures. The fascial defect was also closed with 2 [id number] 0 Nurolon sutures. The wound was irrigated with saline. Hemostasis achieved with electrocautery and one 3-0 Vicryl suture in the preperitoneal fat. The skin of the umbilicus was secured to the fascia using 3-0 Vicryl suture interrupted. The incision was closed with 3-0 Vicryl subdermal interrupted sutures and the skin was closed with interrupted 4-0 Monocryl sutures. Steri-Strips and Tegaderm and OpSite were placed over the incision once sterile cotton balls were placed in the umbilicus. Patient was extubated. Patient tolerated procedure well and was taken to the postanesthesia care unit in stable condition. Grafts/Implants Used: Ventralex ST hernia patch medium 6.4 cm (ref [id number] lot [id number]) Complications none
--- NOTE | 2020-11-14 13:31 | EX.PCM.DISCH ---
Discharge Instructions Procedure Hernia (Umbilical hernia with mesh) Diet Discharge Diet: Light diet - advance as tolerated Activity Discharge Activity: May not drive while taking narcotic pain medications. May shower in (days): 5 (Keep umbilical dressing clean dry and intact for 5 days. Okay to tape off with a Ziploc bag to shower. Or lower shower and upper sponge bath.) Lifting Restrictions: no lifting >20 lbs x 2 wks, no strenuous exercise for 4 wks Additional Activity Instructions:: - Dressing / Incision Call your doctor if your incision/area has: Continuous Slow Oozing, Sudden Increased Bleeding, Increased Pain/ Swelling, Increased Redness, Foul Smelling Discharge and Swelling at the incision site Call your doctor if you observe: Fever of 101 or Higher Remove Dressing in: 5 days (After 5 days okay to remove surgical dressing. Place cotton ball or rolled up gauze in bellybutton and retape daily for 2 more days.) Cleanse incision/area with: Do not get Incision Wet (for 5 days) Additional Dressing/Incision Instructions:: Steri-Strips will fall off in 7 to 10 days, if they do not fall off okay to remove after 10 days. Follow Up Care Please Follow Up With: Sulema Da Silva MD When: Call the office for a follow-up appointment 2 weeks; after 5 PM and on the weekends call [phone] with any concerns. Test Results: Test results from this visit will be discussed in further detail at your follow-up appointment, if applicable. Discharge Plan Admission Attending Provider: Sulema DaS ilva Primary Care Provider: Emory Mccarty Discharge Orders/Prescriptions Prescriptions: Continued aspirin [Adult Low Dose Aspirin] 81 mg tablet,delayed release (DR/EC) 81 mg PO DAILY RF: 0 carvedilol 12.5 mg tablet 12.5 mg PO BID RF: 0 metformin 1,000 mg tablet 1,000 mg PO QHS RF: 0 glimepiride 4 mg tablet 4 mg PO DAILY RF: 0 sertraline 25 MG tablet 25 mg PO DAILY RF: 0 cyclobenzaprine 10 mg Tablet 10 mg PO TID PRN (Reason: Spasms) RF: 0 gabapentin 300 mg Tablet 300 mg PO QHS RF: 0 ramipril 10 mg capsule 10 mg PO DAILY RF: 0 testosterone cypionate 100 MG/ML oil 200 mg IM QWEEK RF: 0 tamsulosin 0.4 MG capsule 0.4 mg PO DAILY RF: 0 furosemide 20 MG tablet 20 mg PO DAILY RF: 0 nitroglycerin 0.4 mg tablet, sublingual 0.4 mg SUBLINGUAL Q5-15M PRN (Reason: chest pain) Qty: 25 RF: 3 Changed tramadol 50 mg tablet 50 - 100 mg PO Q6H PRN PRN (Reason: Pain) 3 Days Qty: 10 RF: 0 Held Eliquis 2.5 mg tablet 2.5 mg PO BID RF: 0 Hold Instructions: Resume on 11/15/20. Referrals / Follow Up: Emory Mccarty MD [Primary Care Provider] - Disposition Disposition (needs filled in before D/C Order can be placed): Home, self care
--- NOTE | 2020-11-14 14:57 | PCM.PN.BLA ---
Progress Note Late entry: Patient had been moved over to PACU cart from OR table. Patient was combative, patient did get supplemental oxygen though still remained combative and unable to get a good pulse ox. Patient was mask ventilated and then no pulse was on exam. Code was called. Patient did have CPR from 1:56-2:10 and did regain a pulse, patient was intubated during this time. Patient also got 3 rounds of epinephrine. Then at 2:23 patient again lost his pulse and CPR was restarted. 3 rounds of epinephrine as well as bicarb was given after 25 minutes patient did not regain a pulse. During both codes no shock was given. Code was called at 248 as it was no pulse on exam. Time of was 14:48 11/14/2020. The family was kept updated during this time..
[2020-11-14 15:01] VITALS: BP 120/89; PULSE 0; PULSE 118; RESP 18; RESP 22; O2SAT 57
--- NOTE | 2020-11-14 16:14 | CHAPLAIN ---
Type of Pastoral Visit ___ Initial Visit ___ Follow-up Visit ___ On-call Visit ___ General Patient Visit ___ Spiritual Assessment ___ Family Conference ___ Bereavement ___ Rapid Response _x__ Code Blue ___ Other (describe below) Pastoral Care Referral From ___ Patient ___ Family ___ Nurse ___ Physician ___ Bridal Sales Consultant ___ Finisher Denture _x__ Other (describe below) Sacrament/Intervention _x__ Active listening ___ Anointing ___ Mosque _x__ Bereavement ___ Communion ___ Rosetta exploration ___ _x__ Life review _x__ Prayer ___ Reconciliation ___ Sacrament of Sick __x_ Supportive presence ___ Wedding ___ Other (describe below) Pastoral Comments code blue in recovery area of AC; met spouse and granddaughter while medical team worked to revive pt; pt ; other family members began to gather; offered prayer, presence, water, listening ear; family members shocked by sudden but found help from staff and one another; escorted several family members to exit when completed with time with the
--- NOTE | 2020-11-14 17:18 | SUR.PHASEII ---
6604- pt transferred to [facility] after family has been with pt and able to talk with the chaplian. packet completed-see paperwork
[2020-11-22 14:16] LABS: Bedside Glucose 262 mg/dL (70-110)
== END 2020-11-14 16:40 ==
LOC: SDC 10:49 → AC 10:49
PROVIDERS: PCP Family Medicine; Referring Provider Surgery; Visit Provider Surgery
PROC: (CPT 31500; principal; 2020-11-14 12:15)
DX: K42.9 Umbilical hernia without obstruction or gangrene (principal); I46.9 Cardiac arrest, cause unspecified; I25.10 Atherosclerotic heart disease of native coronary artery without angina pectoris; N18.30 Chronic kidney disease, stage 3 unspecified; F32.9 Major depressive disorder, single episode, unspecified; F41.9 Anxiety disorder, unspecified; J44.9 Chronic obstructive pulmonary disease, unspecified; I48.91 Unspecified atrial fibrillation; I12.9 Hypertensive chronic kidney disease with stage 1 through stage 4 chronic kidney disease, or unspecified chronic kidney disease; K44.9 Diaphragmatic hernia without obstruction or gangrene; G47.30 Sleep apnea, unspecified; E11.22 Type 2 diabetes mellitus with diabetic chronic kidney disease; E11.69 Type 2 diabetes mellitus with other specified complication; E66.9 Obesity, unspecified; Z68.39 Body mass index [BMI] 39.0-39.9, adult; I42.0 Dilated cardiomyopathy; K21.9 Gastro-esophageal reflux disease without esophagitis; I44.7 Left bundle-branch block, unspecified; I48.0 Paroxysmal atrial fibrillation; D75.1 Secondary polycythemia; Z79.01 Long term (current) use of anticoagulants; Z79.82 Long term (current) use of aspirin; Z79.84 Long term (current) use of oral hypoglycemic drugs; Z79.899 Other long term (current) drug therapy; Z87.891 Personal history of nicotine dependence; Z95.810 Presence of automatic (implantable) cardiac defibrillator
CPT/HCPCS: 00830; 31500; 49585; 82962; 87426; 88302; 93005; C1781; C9803; J7120; A4216; J2405